=== PATIENT | male | born 1990 | race Caucasian/White ===

== ENCOUNTER 2020-06-23 20:27 | Emergency (ER) | payer OTHER ==
[~2020-06-23 20:27] MED LIST: KEFLEX500 MG PO; NAPROXEN500 MG PO; NORCO 5-325 TA1 EACH PO
[2020-06-23 21:40] LABS: BILIRUBIN NEGATIVE (NEGATIVE); BLOOD 3+ Ery/uL (NEGATIVE); CLARITY CLOUDY (CLEAR); COLOR YELLOW (YELLOW); GLUCOSE (U) NORMAL (NORMAL); LEUKOCYTES 1+ Leu/uL (NEGATIVE); NITRITE NEGATIVE (NEGATIVE); PROTEIN 1+ mg/dL (NEGATIVE)
[2020-06-23 21:45] LABS: BACTERIA 1+; SQUAMOUS EPITHELIAL CELLS RARE; URINARY WBC 20-50
[2020-06-23 21:49] LABS: BASOPHIL 0.4 % (0-2); EOSINOPHIL 0.6 % (0-5); HGB 15.4 g/dl (13.2-18.0); LYMPHOCYTE 16.8 % (15-48); MCH 29.2 pg (25.0-31.0); MCHC 33.5 g/dL (32.0-36.0); MCV 87.3 fL (78.0-100.0); MONOCYTE 7.6 % (0-12); MPV 8.7 fL (6.0-9.5); NEUTROPHIL 74.2 % (41-80); NRBC 0; PLT 269 K/uL (150-400); RBC 5.27 M/uL (4.70-6.00); RDW 12.9 % (11.5-14.0); WBC 15.5 K/uL (4.0-10.5)
[2020-06-23 22:05] LABS: ALBUMIN 3.1 g/dL (3.4-5.0); BILIRUBIN - TOTAL 0.4 mg/dL (0.2-1.0); BUN/CREAT RATIO (CALC) 14.7 RATIO; CREATININE 0.95 mg/dL (0.67-1.17); GLOBULIN (CALCULATION) 4.5 g/dL; POTASSIUM 4.1 mmol/L (3.5-5.1); TOTAL PROTEIN 7.6 g/dL (6.4-8.2)
[2020-06-23] MEDS ORDERED: IBUPROFEN800 MG PO (23:16)
[2020-06-23] MEDS ORDERED: VIBRAMYCIN100 MG PO (23:16)
[2020-06-28 02:07] LABS: CHLAMYDIA TRACHOMATIS, NAA Negative (Negative); NEISSERIA GONORRHOEAE, NAA Positive (Negative)
== END 2020-06-23 23:35 | disposition home or self-care (01) ==
LOC: FER 20:27
PROVIDERS: Emergency Medicine Emergency Medical Services
DX: N45.1 Epididymitis (principal); N30.00 Acute cystitis without hematuria; F17.210 Nicotine dependence, cigarettes, uncomplicated
CPT/HCPCS: 36415; 76870; 80053; 81001; 83605; 84145; 85025; 87088; 87491; 87591; J0696

== ENCOUNTER 2020-10-20 19:09 | Emergency (ER) | payer OTHER ==
[~2020-10-20 19:09] MED LIST changes: +IBUPROFEN800 MG PO; +VIBRAMYCIN100 MG PO
[2020-10-20 20:49] LABS: BASOPHIL 0.3 % (0-2); EOSINOPHIL 2.1 % (0-5); HCT 43.1 % (42.0-52.0); MCHC 34.8 g/dL (32.0-36.0); MCV 86.2 fL (78.0-100.0); MONOCYTE 8.8 % (0-12); MPV 9.3 fL (6.0-9.5); NEUTROPHIL 55.6 % (41-80); NRBC 0; PLT 230 K/uL (150-400); RDW 12.8 % (11.5-14.0); WBC 6.3 K/uL (4.0-10.5)
[2020-10-20 21:01] LABS: ALBUMIN 3.6 g/dL (3.4-5.0); BILIRUBIN - TOTAL 0.4 mg/dL (0.2-1.0); BUN/CREAT RATIO (CALC) 10.4 RATIO; CREATININE 1.06 mg/dL (0.67-1.17); GLOBULIN (CALCULATION) 4.5 g/dL; TOTAL PROTEIN 8.1 g/dL (6.4-8.2)
[2020-10-20 21:01] LABS: BILIRUBIN NEGATIVE (NEGATIVE); BLOOD NEGATIVE Ery/uL (NEGATIVE); CLARITY CLEAR (CLEAR); COLOR YELLOW (YELLOW); GLUCOSE (U) NORMAL (NORMAL); LEUKOCYTES NEGATIVE Leu/uL (NEGATIVE); NITRITE NEGATIVE (NEGATIVE); PROTEIN NEGATIVE (NEGATIVE); pH 7.5 (5.0-9.0)
[2020-10-20 21:10] LABS: AMPHETAMINES POSITIVE (NEGATIVE); BARBITURATES NEGATIVE (NEGATIVE); ECSTASY (MDMA) NEGATIVE (NEGATIVE); MARIJUANA (THC) NEGATIVE (NEGATIVE); METHADONE NEGATIVE (NEGATIVE); OPIATES NEGATIVE (NEGATIVE); OXYCODONE NEGATIVE (NEGATIVE)
== END 2020-10-20 23:23 | disposition home or self-care (01) ==
LOC: FER 19:09
PROVIDERS: Nurse Practitioner Family
DX: F22 Delusional disorders (principal); F19.90 Other psychoactive substance use, unspecified, uncomplicated; Z98.890 Other specified postprocedural states; M54.2 Cervicalgia
CPT/HCPCS: 36415; 80053; 80305; 81003; 85025; 99283; J7030